=== PATIENT | male | born 1965 | race Two or more races ===

== ENCOUNTER 2018-02-03 20:57 | Emergency (ER) | payer SELFPAY ==
[~2018-02-03] VITALS: Ht 172.7 cm; Wt 77.1 kg
--- NOTE | 2018-02-03 21:09 | Emergency Room Report ---
History of Present Illness General Chief Complaint: Headache Source: Patient Present Illness HPI Patient is a 52-year-old male brought in by family member after increased headache in generalized weakness. Patient was noted to have increased the throbbing headache. He denies any fever. He reports having prior history of hernia. He does not know of any history of diabetes. He denies any medical history does not take medications. Not been vomiting. He denies alcohol use.He denies any abdominal pain. He denies any vertigo sensation. Allergies: Coded Allergies: No Known Allergies (Unverified , 02/03/18) Patient History Past Medical History: see triage record Reviewed Nursing Documentation: PMH: Agreed; PSxH: Agreed Nursing Documentation-PMH Past Medical History: No Stated History Review of Systems All Other Systems: negative except mentioned in HPI Physical Exam Vital Signs Date Time Temp Pulse Resp B/P (MAP) Pulse Ox O2 Delivery O2 Flow Rate FiO2 02/03/18 20:58 98.3 93 16 84/55 93 Room Air 98.2 Sp02 EP Interpretation: reviewed, normal General Appearance: normal inspection, well appearing, no apparent distress, alert, GCS 15 Head: atraumatic ENT: normal ENT inspection, hearing grossly normal, normal voice Neck: normal inspection, full range of motion, supple, no bony tend Respiratory: normal inspection, lungs clear, normal breath sounds, no respiratory distress, no retraction, no wheezing Cardiovascular #1: regular rate, rhythm, no edema Gastrointestinal: normal inspection, normal bowel sounds, non tender, soft, no guarding, no hernia, hernia - umbilical easily reduced Genitourinary: no CVA tenderness Musculoskeletal: normal inspection, back normal, normal range of motion Neurologic: normal inspection, alert, oriented x3, responsive, 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 Differential diagnoses included but was not limited to skull fracture, subarachnoid hemorrhage, meningitis, aneurysm, mass lesion, intracranial hemorrhage.Because of complexity of patient's case laboratory testing and imaging studies were ordered. The CT of the head read by radiologist no evidence of acute intracranial hemorrhage or CVA. Patient was given IV fluids as well as medications for pain with improvement of symptoms. Patient does not show any evidence of neck stiffness. He did not appear to have any neurologic deficit. The patient is advised to follow-up with his primary care physician for further outpatient treatment. The patient is advised to return if he began having worsening condition or further concerns. Labs Test 02/03/18 21:25 02/03/18 21:50 White Blood Count 13.7 K/UL (4.8-10.8) Red Blood Count 4.87 M/UL (4.70-6.10) Hemoglobin 13.6 G/DL (14.2-18.0) Hematocrit 41.3 % (42.0-52.0) Mean Corpuscular Volume 85 FL (80-99) Mean Corpuscular Hemoglobin 28.0 PG (27.0-31.0) Mean Corpuscular Hemoglobin Concent 33.0 G/DL (32.0-36.0) Red Cell Distribution Width 11.5 % (11.6-14.8) Platelet Count 263 K/UL (150-450) Mean Platelet Volume 8.8 FL (6.5-10.1) Neutrophils (%) (Auto) 72.1 % (45.0-75.0) Lymphocytes (%) (Auto) 20.7 % (20.0-45.0) Monocytes (%) (Auto) 6.1 % (1.0-10.0) Eosinophils (%) (Auto) 0.5 % (0.0-3.0) Basophils (%) (Auto) 0.7 % (0.0-2.0) Prothrombin Time 11.3 SEC (9.30-11.50) Prothromb Time International Ratio 1.1 (0.9-1.1) Activated Partial Thromboplast Time 22 SEC (23-33) Sodium Level 142 MMOL/L (136-145) Potassium Level 4.2 MMOL/L (3.5-5.1) Chloride Level 106 MMOL/L (98-107) Carbon Dioxide Level 26 MMOL/L (21-32) Anion Gap 10 mmol/L (5-15) Blood Urea Nitrogen 17 mg/dL (7-18) Creatinine 1.3 MG/DL (0.55-1.30) Estimat Glomerular Filtration Rate 58.2 mL/min (>60) Glucose Level 172 MG/DL (74-106) Lactic Acid Level 2.00 mmol/L (0.4-2.0) Calcium Level 8.9 MG/DL (8.5-10.1) Phosphorus Level 4.3 MG/DL (2.5-4.9) Magnesium Level 1.3 MG/DL (1.8-2.4) Total Bilirubin 0.4 MG/DL (0.2-1.0) Aspartate Amino Transf (AST/SGOT) 18 U/L (15-37) Alanine Aminotransferase (ALT/SGPT) 34 U/L (12-78) Alkaline Phosphatase 89 U/L (46-116) Total Creatine Kinase 217 U/L (26-308) Creatine Kinase MB 1.3 NG/ML (0.0-3.6) Creatine Kinase MB Relative Index 0.5 Troponin I 0.000 ng/mL (0.000-0.056) Total Protein 7.4 G/DL (6.4-8.2) Albumin 4.0 G/DL (3.4-5.0) Globulin 3.4 g/dL Albumin/Globulin Ratio 1.2 (1.0-2.7) Urine Color Yellow Urine Appearance Clear Urine pH 5 (4.5-8.0) Urine Specific [place] 1.030 (1.005-1.035) Urine Protein 2+ (NEGATIVE) Urine Glucose (UA) Negative (NEGATIVE) Urine Ketones 1+ (NEGATIVE) Urine Occult Blood 1+ (NEGATIVE) Urine Nitrite Negative (NEGATIVE) Urine Bilirubin Negative (NEGATIVE) Urine Urobilinogen 1 MG/DL (0.0-1.0) Urine Leukocyte Esterase 1+ (NEGATIVE) Urine RBC 5-10 /HPF (0 - 0) Urine WBC 0-2 /HPF (0 - 0) Urine Squamous Epithelial Cells None /LPF (NONE/OCC) Urine Bacteria Few /HPF (NONE) Urine Mucus Many /LPF (NONE/OCC) EKG Diagnostic Results Rate: normal - 93 Rhythm: NSR ST Segments: no acute changes Last Vital Signs Date Time Temp Pulse Resp B/P (MAP) Pulse Ox O2 Delivery O2 Flow Rate FiO2 02/03/18 20:58 98.3 93 16 84/55 93 Room Air 98.2 Status: improved Disposition: HOME, SELF-CARE Condition: Stable Scripts Ibuprofen* (MOTRIN*) 600 Mg Tablet 600 MG ORAL Q8H PRN for For Pain, #30 TAB 0 Refills Prov: Brent Mathis MD 02/04/18 Brent Mathis MD Feb 03, 2018 21:09
[2018-02-03 21:12] VITALS: BP 135/77
[2018-02-03] MEDS ORDERED: LORazepam Inj 2mg/ml 1ml IV ONE (21:15)
[2018-02-03 21:49] LABS: BASOPHILS % (AUTO) 0.7 % (0.0-2.0); EOSINOPHILS % (AUTO) 0.5 % (0.0-3.0); HEMATOCRIT 41.3 % (42.0-52.0); HEMOGLOBIN 13.6 G/DL (14.2-18.0); LYMPHOCYTES % (AUTO) 20.7 % (20.0-45.0); MEAN CORPUSCULAR VOLUME 85 FL (80-99); MONOCYTES % (AUTO) 6.1 % (1.0-10.0); NEUTROPHILS % (AUTO) 72.1 % (45.0-75.0); PLATELET COUNT 263 K/UL (150-450); RED BLOOD COUNT 4.87 M/UL (4.70-6.10); RED CELL DISTRIBUTION WIDTH 11.5 % (11.6-14.8); WHITE BLOOD COUNT 13.7 K/UL (4.8-10.8)
[2018-02-03 21:59] LABS: ANION GAP 10 mmol/L (5-15); BLOOD UREA NITROGEN 17 mg/dL (7-18); CALCIUM 8.9 MG/DL (8.5-10.1); CARBON DIOXIDE 26 MMOL/L (21-32); CHLORIDE 106 MMOL/L (98-107); CREATININE 1.3 MG/DL (0.55-1.30); POTASSIUM 4.2 MMOL/L (3.5-5.1); SODIUM 142 MMOL/L (136-145)
[2018-02-03 22:13] LABS: APPEARANCE,URINE CLEAR; BILIRUBIN, URINE NEGATIVE (NEGATIVE); GLUCOSE, URINE (UA) NEGATIVE (NEGATIVE); KETONES,URINE 1+ (NEGATIVE); LEUKOCYTE ESTERASE ,URINE 1+ (NEGATIVE); NITRITE,URINE NEGATIVE (NEGATIVE); PH,URINE 5 (4.5-8.0); PROTEIN,URINE 2+ (NEGATIVE); UROBILINOGEN,URINE 1 MG/DL (0.0-1.0)
[2018-02-03 22:15] LABS: COLOR,URINE YELLOW
[2018-02-03 22:17] LABS: INR 1.1 (0.9-1.1)
[2018-02-03 22:31] LABS: ALANINE AMINOTRANSFERASE 34 U/L (12-78); ALBUMIN/GLOBULIN RATIO 1.2 (1.0-2.7); ALKALINE PHOSPHATASE 89 U/L (46-116); ASPARTATE AMINO TRANSFERASE 18 U/L (15-37); BILIRUBIN,TOTAL 0.4 MG/DL (0.2-1.0); CKMB 1.3 NG/ML (0.0-3.6); CREATINE KINASE 217 U/L (26-308); PHOSPHORUS 4.3 MG/DL (2.5-4.9)
[2018-02-04] MEDS ORDERED: IBUPROFEN600 MG ORAL (00:28)
[2018-02-04 00:36] VITALS: BP 114/63
--- NOTE | 2018-02-04 11:03 | Diagnostic Imaging Report ---
Indication: Headache Technique: Continuous helical CT scanning of the head was performed without intravenous contrast material. Axial and coronal 5 mm sections were generated. Radiation dose was minimized using automated exposure control Dose: Total Dose Length Product - DLP 1438.[address] Dose Index - CTDIvol(s) 70.38 mGy. Comparison: none Findings: The ventricular system is normal in size and configuration. There is no shift of midline structures. No abnormal extra-axial fluid collections are noted. There is no evidence of intracerebral bleeding. Apparent low-attenuation focus in the iglesia is probably artifactual. No other abnormal high or low density areas are noted within the brain. Visualized orbits and sinuses are unremarkable. The mastoids are clear. The calvarium is intact Impression: Normal CT scan of the head without contrast material. This agrees with the preliminary interpretation provided overnight by [facility]. The CT scanner at [facility] is accredited by the [employer] and the scans are performed using protocols designed to limit radiation exposure to as low as reasonably achievable to attain images of sufficient resolution adequate for diagnostic evaluation.
--- NOTE | 2018-02-04 11:15 | Diagnostic Imaging Report ---
Indication: Shortness of breath Technique: One view of the chest Comparison: none Findings: Inspiration is suboptimal. Lungs and pleural spaces are clear. The heart size is upper limits of normal. The aorta is tortuous. Impression: No acute process
== END 2018-02-04 00:35 | disposition home or self-care (01) ==
LOC: EMR 21:12
DX: E86.0 Dehydration (principal); R51 Headache
CPT/HCPCS: 36415; 70450; 71045; 80053; 81003; 82550; 82553; 83605; 83735; 84100; 84484; 85025; 85610; 85730; 87040; 93005; 96361; 96374; 99284